=== PATIENT | female | born 1970 | race Caucasian/White ===

== ENCOUNTER → 2019-11-30 15:10 | Outpatient (BNVA) | payer SELFPAY | PROVIDERS: Visit Provider Specialist | DX: G35 Multiple sclerosis (principal) | CPT/HCPCS: 99213 ==

== ENCOUNTER 2020-05-10 11:48 | Outpatient (CLI) | payer OTHER, SELFPAY ==
--- NOTE | 2020-05-10 11:55 | MM_ITS ---
WS: [id number] SCREENING DIGITAL MAMMOGRAM WITH CAD HISTORY: SCREENING COMPARISON: 03/27/2019 and 03/28/2018 Bilateral CC and MLO views submitted. Computer aided detection analyzed. Breast composition: There are scattered areas of fibroglandular density. No suspicious masses, microc alcifications or architectural distortion. MM/[place] [id number] IMPRESSION: BI-RADS: 1-Negative FOLLOW UP: 1 Year Follow-up
== END 2020-05-10 11:49 | disposition home or self-care (01) ==
LOC: RADSHAW 11:51
PROVIDERS: Visit Provider Nurse Practitioner Family
DX: Z12.31 Encounter for screening mammogram for malignant neoplasm of breast (principal)
CPT/HCPCS: 77067

== ENCOUNTER → 2020-11-28 15:25 | Outpatient (BNVA) | payer SELFPAY | PROVIDERS: Visit Provider Specialist | DX: G35 Multiple sclerosis (principal); Z71.89 Other specified counseling | CPT/HCPCS: 99213 ==

== ENCOUNTER 2021-07-07 10:00 | Outpatient (CLI) | payer OTHER, SELFPAY ==
--- NOTE | 2021-07-07 10:20 | MM_ITS ---
WS: [id number] BILATERAL DIGITAL SCREENING MAMMOGRAPHY WITH CAD CLINICAL INFORMATION: SCREENING HISTORY: Screening mammogram. No current complaints. COMPARISON: May 10, 2020 TECHNIQUE: Bilateral CC and MLO views. FINDINGS: Scattered fibroglandular densities bilaterally. No suspicious focal mass, asymmetry, calcifications, or architectural distortion. No evidence of malignancy. MM/[place] [id number] IMPRESSION: BI-RADS: 1-Negative FOLLOW UP: 1 Year Follow-up Recommend return to annual screening mammography.
== END 2021-07-07 10:01 | disposition home or self-care (01) ==
PROVIDERS: Visit Provider Nurse Practitioner Family
DX: Z12.31 Encounter for screening mammogram for malignant neoplasm of breast (principal)
CPT/HCPCS: 77067

== ENCOUNTER 2021-12-29 07:16 | Outpatient (CLI) | payer SELFPAY ==
[2022-01-11 21:43] LABS: Acetylcholine Recept Modulatin 83
[2022-01-12 23:27] LABS: Acetylcholine Receptor Block 29 (<15)
== END 2021-12-29 07:17 | disposition home or self-care (01) ==
PROVIDERS: Visit Provider Specialist
DX: G35 Multiple sclerosis (principal)
CPT/HCPCS: 36415; 83516; 83519

== ENCOUNTER 2022-07-11 11:39 | Outpatient (CLI) | payer SELFPAY ==
--- NOTE | 2022-07-11 12:13 | MM_ITS ---
WS: [id number] BILATERAL 3D TOMOSYNTHESIS DIGITAL SCREENING MAMMOGRAPHY WITH CAD CLINICAL INFORMATION: SCREENING HISTORY: Screening mammogram. No current complaints. COMPARISON: 2021 TECHNIQUE: Bilateral CC and MLO views. FINDINGS: Scattered fibroglandular densities bilaterally. No suspicious focal mass, asymmetry, calcifications, or architectural distortion. No evidence of malignancy. A few incidental punctate calcifications. MM/[place] [id number] IMPRESSION: BI-RADS: 2-Benign FOLLOW UP: 1 Year Follow-up Recommend return to annual screening mammography.
== END 2022-07-11 11:40 | disposition home or self-care (01) ==
LOC: RAD 11:41
PROVIDERS: Visit Provider Advanced Practice Midwife
DX: Z12.31 Encounter for screening mammogram for malignant neoplasm of breast (principal)
CPT/HCPCS: 77063; 77067

== ENCOUNTER 2022-08-24 08:30 | Oncology outpatient (recurring) (ONCR) | payer SELFPAY ==
[2022-08-03 08:35] VITALS: BP 125/75; PULSE 70; RESP 16; TEMP 36.2; O2SAT 98
[2022-08-03] MEDS: sodium chloride 0.9% 250 ML 75 ML IV (08:45)
[2022-08-03 11:25] VITALS: BP 112/77; PULSE 66; RESP 16; TEMP 36.2; O2SAT 98
[2022-08-10 08:26] VITALS: BMI 25.5
[2022-08-10 08:34] VITALS: BP 115/76; PULSE 72; RESP 16; TEMP 36.3; O2SAT 99
[2022-08-10] MEDS: sodium chloride 0.9% 250 ML 75 ML IV (08:39)
[2022-08-10 09:46] VITALS: BP 128/78; PULSE 65; RESP 16; TEMP 36.3; O2SAT 99
[2022-08-10 10:37] VITALS: BP 110/71; PULSE 64; RESP 16; TEMP 36.3; O2SAT 98
[2022-08-17] MEDS: sodium chloride 0.9% 250 ML IV (08:37)
[2022-08-17 10:04] VITALS: BP 111/67; PULSE 65; RESP 16; TEMP 36.4; O2SAT 99
[2022-08-24] MEDS: sodium chloride 0.9% 250 ML IV (08:46)
[2022-08-24 08:49] VITALS: BP 124/80; PULSE 71; RESP 18; TEMP 36.7; O2SAT 98
[2022-08-24 11:01] VITALS: BP 118/80; PULSE 74; RESP 18; TEMP 36.1; O2SAT 98
== END 2022-08-31 23:59 | disposition home or self-care (01) ==
PROVIDERS: Visit Provider Specialist
DX: G35 Multiple sclerosis (principal); G70.00 Myasthenia gravis without (acute) exacerbation; Z79.899 Other long term (current) drug therapy
CPT/HCPCS: 96365; 96366; A4222; J7050

== ENCOUNTER 2022-12-06 10:10 | Outpatient (CLI) | payer SELFPAY ==
[2022-12-06 10:51] LABS: Basophils % 0.4 %; Eosinophils % 0.1 %; Hematocrit 42.5 % (37.0-47.0); Hemoglobin 13.8 g/dL (11.5-15.3); Lymphocytes # 1.2 10^3/uL (0.8-4.8); Lymphocytes % 14.8 %; Mean Corpuscular HGB Conc 32.5 g/dL (30.0-36.0); Mean Corpuscular Hemoglobin 32.7 pg (28.0-34.0); Mean Corpuscular Volume 100.7 fl (81-99); Mean Platelet Volume 9.1 fL (7.4-10.4); Monocytes # 0.3 10^3/uL (0.2-0.9); Monocytes % 3.7 %; Neutrophils # 6.23 10^3/uL (1.8-7.7); Neutrophils % 80.5 %; Nucleated Red Blood Cells % 0 %; Platelet Count 276 10^3/cmm (130-400); Red Blood Count 4.22 10^6/uL (4.1-5.3); White Blood Count 7.8 10^3/uL (4.0-10.0)
[2022-12-06 11:23] LABS: Alanine Aminotransferase 14 U/L (0-33); Albumin Level 3.9 g/dL (3.5-5.2); Alkaline Phosphatase 40 U/L (35-105); Aspartate Amino Transferase 22 U/L (0-32); Blood Urea Nitrogen 9 mg/dL (6-20); Calcium 8.9 mg/dL (8.5-10.5); Carbon Dioxide 22 mmol/L (22-29); Chloride 109 mmol/L (98-107); Globulin 2.3 g/dL (1.3-4.6); Glomerular Filtration Rate 75.3 mL/min (90-130); Glucose 100 mg/dL (65-115); Osmolality Calculated 295 mOsm/kg (285-295); Sodium 143 mmol/L (136-145); Thyroid Stimulating Hormone 1.68 uIU/mL (0.27-4.20); Total Bilirubin 0.4 mg/dL (0.15-1.2); Total Protein 6.2 g/dL (6.6-8.7)
== END 2022-12-06 10:11 | disposition home or self-care (01) ==
LOC: LAB 10:12
PROVIDERS: Visit Provider Specialist
DX: G70.00 Myasthenia gravis without (acute) exacerbation (principal)
CPT/HCPCS: 36415; 80053; 84443; 85025

== ENCOUNTER 2023-01-25 09:00 | Oncology outpatient (recurring) (ONCR) | payer SELFPAY ==
[2023-01-11] MEDS: sodium chloride 0.9% 250 ML 75 ML IV (09:19)
[2023-01-11] MEDS: diphenhydrAMINE 25 mg Capsule PO (09:20)
[2023-01-11 09:39] VITALS: BP 126/69; PULSE 67; RESP 17; TEMP 36.8; O2SAT 98
[2023-01-11 10:30] VITALS: BP 126/71; PULSE 59; RESP 16; TEMP 36.6; O2SAT 99
[2023-01-18 08:47] VITALS: BP 142/74; PULSE 72; RESP 18; TEMP 36.2; O2SAT 96
[2023-01-18] MEDS: sodium chloride 0.9% 250 ML 75 ML IV (09:00)
[2023-01-18] MEDS: diphenhydrAMINE 25 mg Capsule PO (09:00)
[2023-01-18 10:40] VITALS: BP 130/71; PULSE 75; RESP 17; TEMP 36.4; O2SAT 95
[2023-01-25 09:23] VITALS: BMI 25.5
[2023-01-25] MEDS: diphenhydrAMINE 25 mg Capsule PO (09:41)
[2023-01-25] MEDS: sodium chloride 0.9% 250 ML 75 ML IV (09:44)
[2023-01-25 09:45] VITALS: BP 131/67; PULSE 79; RESP 17; TEMP 36; O2SAT 97; BMI 25.5
[2023-01-25 11:35] VITALS: BP 118/74; PULSE 65; O2SAT 98
== END 2023-01-31 23:59 | disposition home or self-care (01) ==
PROVIDERS: Visit Provider Specialist
DX: Z51.12 Encounter for antineoplastic immunotherapy (principal); G35 Multiple sclerosis
CPT/HCPCS: 96365; 96413; J7050; Q5121

== ENCOUNTER 2023-02-01 08:38 | Oncology outpatient (recurring) (ONCR) | payer SELFPAY ==
[2023-02-01 08:40] VITALS: BP 124/59; PULSE 103; RESP 18; TEMP 36.6; O2SAT 97
[2023-02-01 08:49] VITALS: BMI 25.2
[2023-02-01] MEDS: sodium chloride 0.9% 250 ML 75 ML IV (09:13)
[2023-02-01] MEDS: diphenhydrAMINE 25 mg Capsule PO (09:13)
[2023-02-01 11:00] VITALS: BP 120/65; PULSE 74; RESP 16; TEMP 36.5; O2SAT 96
== END 2023-03-02 23:59 | disposition home or self-care (01) ==
PROVIDERS: Visit Provider Specialist
DX: G35 Multiple sclerosis (principal)
CPT/HCPCS: 96413; J7050; Q5121

== ENCOUNTER 2023-04-24 08:00 | Oncology outpatient (recurring) (ONCR) | payer SELFPAY ==
[2023-04-05 07:58] VITALS: BP 126/78; PULSE 69; O2SAT 99
[2023-04-05] MEDS: sodium chloride 0.9% 250 ML 75 ML IV (08:23)
[2023-04-05] MEDS: diphenhydrAMINE 25 mg Capsule PO (08:23)
[2023-04-05 09:50] VITALS: BP 143/70; PULSE 64; RESP 16; O2SAT 99
[2023-04-12 07:58] VITALS: BP 122/80; PULSE 76; TEMP 36.3; O2SAT 98
[2023-04-12] MEDS: diphenhydrAMINE 25 mg Capsule PO (08:25)
[2023-04-12] MEDS: sodium chloride 0.9% 250 ML 75 ML IV (08:25)
[2023-04-12 10:09] VITALS: BP 134/75; PULSE 60; TEMP 36.8; O2SAT 97
[2023-04-19 07:58] VITALS: BP 122/71; PULSE 78; TEMP 36.3; O2SAT 98
[2023-04-19] MEDS: sodium chloride 0.9% (100 ml) 100 ML 25 ML (08:18)
[2023-04-19] MEDS: diphenhydrAMINE 25 mg Capsule PO (08:18)
[2023-04-19 10:00] VITALS: BP 121/69; PULSE 64; O2SAT 98
[2023-04-24] MEDS: sodium chloride 0.9% 250 ML 75 ML IV (08:42)
[2023-04-24] MEDS: diphenhydrAMINE 25 mg Capsule PO (08:42)
[2023-04-24 09:00] VITALS: BP 121/63; PULSE 63; RESP 16; O2SAT 99
[2023-04-24 10:33] VITALS: BP 119/66; PULSE 65; RESP 17; O2SAT 99
== END 2023-05-02 23:59 | disposition home or self-care (01) ==
PROVIDERS: Visit Provider Specialist
DX: G35 Multiple sclerosis (principal)
CPT/HCPCS: 96365; 96413; J7050; Q5121

== ENCOUNTER 2023-08-30 09:00 | Oncology outpatient (recurring) (ONCR) | payer SELFPAY ==
[2023-08-16] MEDS: diphenhydrAMINE 25 mg Capsule PO (09:23)
[2023-08-16] MEDS: sodium chloride 0.9% 250 ML 75 ML IV (09:24)
[2023-08-16 09:25] VITALS: BP 120/74; PULSE 69; RESP 16; TEMP 36.6; O2SAT 97
[2023-08-16] MEDS: SODIUM CHLORIDE 0.9% IV (09:37)
[2023-08-16] MEDS: EFGARTIGIMOD ALFA FCAB IV (09:37)
[2023-08-16 10:37] VITALS: BP 116/71; PULSE 72; RESP 16; TEMP 36.4; O2SAT 97
[2023-08-23] MEDS: diphenhydrAMINE 25 mg Capsule PO (09:20)
[2023-08-23] MEDS: sodium chloride 0.9% 250 ML 75 ML IV (09:20)
[2023-08-23] MEDS: EFGARTIGIMOD ALFA FCAB IV (09:37)
[2023-08-23] MEDS: SODIUM CHLORIDE 0.9% IV (09:37)
[2023-08-30 09:09] VITALS: BP 131/77; PULSE 82; RESP 17; TEMP 36.7; O2SAT 97
[2023-08-30] MEDS: diphenhydrAMINE 25 mg Capsule PO (09:09)
[2023-08-30] MEDS: sodium chloride 0.9% 250 ML 75 ML IV (09:12)
[2023-08-30] MEDS: SODIUM CHLORIDE 0.9% IV (09:26)
[2023-08-30] MEDS: EFGARTIGIMOD ALFA FCAB IV (09:26)
[2023-08-30 10:26] VITALS: BP 120/77; PULSE 85; O2SAT 97
== END 2023-09-01 23:59 | disposition home or self-care (01) ==
PROVIDERS: Visit Provider Specialist
DX: Z53.9 Procedure and treatment not carried out, unspecified reason (principal); G35 Multiple sclerosis
CPT/HCPCS: 96365; 96413; A4222; J7050; Q5121

== ENCOUNTER 2023-09-06 08:29 | Oncology outpatient (recurring) (ONCR) | payer SELFPAY ==
[2023-09-06 08:52] VITALS: BP 129/78; PULSE 64; RESP 18; TEMP 36.7; O2SAT 99
[2023-09-06] MEDS: diphenhydrAMINE 25 mg Capsule PO (08:55)
[2023-09-06] MEDS: SODIUM CHLORIDE 0.9% IV (09:24)
[2023-09-06] MEDS: EFGARTIGIMOD ALFA FCAB IV (09:24)
[2023-09-06 10:18] VITALS: BP 142/85; PULSE 66; RESP 17; TEMP 36.8; O2SAT 99
== END 2023-10-01 23:59 | disposition home or self-care (01) ==
PROVIDERS: Visit Provider Specialist
DX: G35 Multiple sclerosis; Z53.9 Procedure and treatment not carried out, unspecified reason
CPT/HCPCS: 96365; Q5121

== ENCOUNTER 2023-09-24 08:39 | Outpatient (CLI) | payer OTHER, SELFPAY ==
--- NOTE | 2023-09-24 08:45 | MM_ITS ---
WS: [id number] BILATERAL 3D TOMOSYNTHESIS DIGITAL SCREENING MAMMOGRAPHY WITH CAD CLINICAL INFORMATION: SCREENING HISTORY: Screening mammogram. No current complaints. COMPARISON: 2022 TECHNIQUE: Bilateral CC and MLO views. FINDINGS: Scattered fibroglandular densities bilaterally. No suspicious focal mass, asymmetry, calcifications, or architectural distortion. No evidence of malignancy. IMPRESSION: MM/[place] [id number] BI-RADS: 1-Negative FOLLOW UP: 1 Year Follow-up Recommend return to annual screening mammography.
== END 2023-09-24 08:40 | disposition home or self-care (01) ==
LOC: RAD 08:40
PROVIDERS: Visit Provider Advanced Practice Midwife
DX: Z12.31 Encounter for screening mammogram for malignant neoplasm of breast (principal)
CPT/HCPCS: 77063; 77067

== ENCOUNTER 2023-11-01 08:22 | Oncology outpatient (recurring) (ONCR) | payer SELFPAY ==
[2023-11-01 08:54] VITALS: BP 135/80; PULSE 75; RESP 16; TEMP 36.4; O2SAT 95
[2023-11-01] MEDS: EFGARTIGIMOD ALFA FCAB IV (09:39)
[2023-11-01] MEDS: SODIUM CHLORIDE 0.9% IV (09:39)
[2023-11-01 11:05] VITALS: BP 125/81; PULSE 66; RESP 16; TEMP 36.6; O2SAT 98
== END 2023-11-01 23:59 | disposition home or self-care (01) ==
PROVIDERS: Visit Provider Internal Medicine Medical Oncology
DX: G35 Multiple sclerosis (principal)
CPT/HCPCS: 96365; Q5121

== ENCOUNTER 2023-11-22 08:30 | Oncology outpatient (recurring) (ONCR) | payer SELFPAY ==
[2023-11-08 09:06] VITALS: BP 133/81; PULSE 76; RESP 16; TEMP 36.5; O2SAT 97
[2023-11-08] MEDS: SODIUM CHLORIDE 0.9% IV (09:56)
[2023-11-08] MEDS: EFGARTIGIMOD ALFA FCAB IV (09:56)
[2023-11-08 11:05] VITALS: BP 116/78; PULSE 74; RESP 17; TEMP 35.9; O2SAT 97
[2023-11-15 08:25] VITALS: BP 144/83; PULSE 73; RESP 18; TEMP 36.4; O2SAT 97
[2023-11-15] MEDS: SODIUM CHLORIDE 0.9% IV (08:47)
[2023-11-15] MEDS: EFGARTIGIMOD ALFA FCAB IV (08:47)
[2023-11-15 09:42] VITALS: BP 146/85; PULSE 65; TEMP 36.6; O2SAT 99
[2023-11-22 08:10] VITALS: BP 151/93; PULSE 83; RESP 16; O2SAT 97
[2023-11-22] MEDS: SODIUM CHLORIDE 0.9% IV (08:25)
[2023-11-22] MEDS: EFGARTIGIMOD ALFA FCAB IV (08:25)
[2023-11-22 09:25] VITALS: BP 128/80; PULSE 70; RESP 16; O2SAT 97
== END 2023-12-01 23:59 | disposition home or self-care (01) ==
PROVIDERS: Visit Provider Internal Medicine Medical Oncology
DX: G35 Multiple sclerosis (principal); Z53.9 Procedure and treatment not carried out, unspecified reason
CPT/HCPCS: 96365; A4222; Q5121

== ENCOUNTER 2024-01-17 07:30 | Oncology outpatient (recurring) (ONCR) | payer SELFPAY ==
[2024-01-10 09:30] VITALS: BP 113/77; PULSE 64; RESP 16; TEMP 36.9; O2SAT 99
[2024-01-10] MEDS: SODIUM CHLORIDE 0.9% IV (09:59)
[2024-01-10] MEDS: EFGARTIGIMOD ALFA FCAB IV (09:59)
[2024-01-10 11:00] VITALS: BP 127/79; PULSE 67; RESP 17; TEMP 36.6; O2SAT 98
[2024-01-17 07:51] VITALS: BP 111/74; PULSE 89; TEMP 37; O2SAT 98
[2024-01-17] MEDS: EFGARTIGIMOD ALFA FCAB IV (08:16)
[2024-01-17] MEDS: SODIUM CHLORIDE 0.9% IV (08:16)
[2024-01-17 09:13] VITALS: BP 116/78; PULSE 74; RESP 16; TEMP 36.6; O2SAT 96
== END 2024-01-17 23:59 | disposition home or self-care (01) ==
PROVIDERS: Visit Provider Internal Medicine Medical Oncology
DX: Z53.9 Procedure and treatment not carried out, unspecified reason; Z79.899 Other long term (current) drug therapy; G35 Multiple sclerosis
CPT/HCPCS: 96365; A4222; Q5121

== ENCOUNTER 2024-01-31 07:49 | Oncology outpatient (recurring) (ONCR) | payer SELFPAY ==
[2024-01-24 08:18] VITALS: BP 145/89; PULSE 79; RESP 16; TEMP 36.9; O2SAT 98
[2024-01-24] MEDS: EFGARTIGIMOD ALFA FCAB IV (08:43)
[2024-01-24] MEDS: SODIUM CHLORIDE 0.9% IV (08:43)
[2024-01-24 09:47] VITALS: BP 122/81; PULSE 61; RESP 16; TEMP 36.5; O2SAT 98
[2024-01-31 07:55] VITALS: BP 118/72; PULSE 77; RESP 16; TEMP 36.3; O2SAT 99
[2024-01-31] MEDS: SODIUM CHLORIDE 0.9% IV (08:24)
[2024-01-31] MEDS: EFGARTIGIMOD ALFA FCAB IV (08:24)
[2024-01-31 09:28] VITALS: BP 117/73; PULSE 73; RESP 16; TEMP 36.2; O2SAT 99
== END 2024-02-01 23:59 | disposition home or self-care (01) ==
PROVIDERS: Visit Provider Internal Medicine Medical Oncology
DX: Z53.9 Procedure and treatment not carried out, unspecified reason (principal); G70.00 Myasthenia gravis without (acute) exacerbation
CPT/HCPCS: 96365; 96413; A4222; Q5121

== ENCOUNTER 2024-04-24 08:00 | Oncology outpatient (recurring) (ONCR) | payer SELFPAY ==
[2024-04-10] MEDS: EFGARTIGIMOD ALFA FCAB IV (08:34)
[2024-04-10] MEDS: SODIUM CHLORIDE 0.9% IV (08:34)
[2024-04-10 08:46] VITALS: BP 130/79; PULSE 78; RESP 16; TEMP 36.8; O2SAT 96
[2024-04-10 09:39] VITALS: BP 125/85; PULSE 70; TEMP 36.6; O2SAT 98
--- NOTE | 2024-04-13 14:57 | PC.NURSE ---
Called Dr. Dooley's office, spoke with nurse Griffin. Clarified vyvgart order. Pt is to receive vyvgart 735mg for 4 weeks in a row, Q50 days.
[2024-04-17 08:20] VITALS: BP 141/82; PULSE 74; RESP 17; TEMP 36.2; O2SAT 97
[2024-04-17] MEDS: EFGARTIGIMOD ALFA FCAB IV (08:40)
[2024-04-17] MEDS: SODIUM CHLORIDE 0.9% IV (08:40)
[2024-04-17 09:33] VITALS: BP 117/83; PULSE 58; TEMP 36.7; O2SAT 98
[2024-04-24 08:32] VITALS: BP 116/76; PULSE 71; RESP 16; TEMP 36.6; O2SAT 98
[2024-04-24] MEDS: EFGARTIGIMOD ALFA FCAB IV (08:48)
[2024-04-24] MEDS: SODIUM CHLORIDE 0.9% IV (08:48)
[2024-04-24 09:48] VITALS: BP 138/66; PULSE 69; RESP 16; TEMP 37; O2SAT 99
== END 2024-05-02 23:59 | disposition home or self-care (01) ==
PROVIDERS: Visit Provider Internal Medicine Medical Oncology
DX: G35 Multiple sclerosis (principal); Z79.899 Other long term (current) drug therapy; Z53.9 Procedure and treatment not carried out, unspecified reason
CPT/HCPCS: 96365; A4222; Q5121

== ENCOUNTER 2024-05-28 08:07 | Oncology outpatient (recurring) (ONCR) | payer SELFPAY ==
[2024-05-04 08:09] VITALS: BP 124/75; PULSE 94; TEMP 36.7; O2SAT 97
[2024-05-04] MEDS: EFGARTIGIMOD ALFA FCAB IV (08:47)
[2024-05-04] MEDS: SODIUM CHLORIDE 0.9% IV (08:47)
[2024-05-04 09:44] VITALS: BP 108/72; TEMP 36.4
[2024-05-28] VITALS (8 sets, daily range): BP systolic 113–128; BP diastolic 67–85; PULSE 63–90; RESP 15–16; TEMP 35.6–37; O2SAT 96–98
[2024-05-28] MEDS: sodium chloride 0.9% 250 ML 75 ML IV (08:52)
[2024-05-28] MEDS: diphenhydrAMINE 50 mg/mL SDV 1mL 25 MG IVP (08:56)
[2024-05-28] MEDS: methylPREDNISolone sod succ 125 mg/2 mL INJ IVP (09:01)
[2024-05-28] MEDS: ocrelizumab 300 MG in sodium chloride 0.9% 250 ML 30 MG IV (09:50)
== END 2024-06-02 23:59 | disposition home or self-care (01) ==
PROVIDERS: Visit Provider Internal Medicine
DX: G35 Multiple sclerosis; Z79.899 Other long term (current) drug therapy; Z53.9 Procedure and treatment not carried out, unspecified reason
CPT/HCPCS: 96365; 96375; 96413; 96415; A4222; J1200; J2350; J2919; J7050; Q5121

== ENCOUNTER 2024-06-11 07:56 | Oncology outpatient (recurring) (ONCR) | payer SELFPAY ==
[2024-06-11] MEDS: acetaminophen 500 mg Tablet 1000 MG PO (09:34)
[2024-06-11] MEDS: sodium chloride 0.9% 250 ML 75 ML IV (09:34)
[2024-06-11] MEDS: methylPREDNISolone sod succ 125 mg/2 mL INJ IVP (09:35)
[2024-06-11] MEDS: diphenhydrAMINE 50 mg/mL SDV 1mL 25 MG IVP (09:41)
[2024-06-11 10:26] VITALS: BP 126/82; PULSE 68; RESP 16; TEMP 35.9; O2SAT 98
[2024-06-11] MEDS: ocrelizumab 300 MG in sodium chloride 0.9% 250 ML 30 MG IV (10:26)
[2024-06-11 10:56] VITALS: BP 115/75; PULSE 69; RESP 16; TEMP 36.4; O2SAT 97
[2024-06-11 11:26] VITALS: BP 108/66; PULSE 69; RESP 16; TEMP 36.6; O2SAT 97
[2024-06-11 14:20] VITALS: BP 127/78; PULSE 74; RESP 18; TEMP 36.5; O2SAT 98
== END 2024-07-03 23:59 | disposition home or self-care (01) ==
PROVIDERS: Visit Provider Internal Medicine
DX: G35 Multiple sclerosis (principal); Z79.899 Other long term (current) drug therapy
CPT/HCPCS: 96375; 96413; 96415; A4222; J1200; J2350; J2919; J7040; J7050

== ENCOUNTER 2024-07-31 07:59 | Oncology outpatient (recurring) (ONCR) | payer SELFPAY ==
[2024-07-10 08:06] VITALS: BP 140/72; PULSE 78; RESP 17; TEMP 36.3; O2SAT 97
[2024-07-10] MEDS: SODIUM CHLORIDE 0.9% IV (08:56)
[2024-07-10] MEDS: EFGARTIGIMOD ALFA FCAB IV (08:56)
[2024-07-10 10:00] VITALS: BP 125/80; PULSE 66; RESP 16; TEMP 36.8; O2SAT 98
[2024-07-17 08:44] VITALS: BP 125/83; PULSE 78; RESP 16; TEMP 36.6; O2SAT 99
[2024-07-17] MEDS: EFGARTIGIMOD ALFA FCAB IV (09:08)
[2024-07-17] MEDS: SODIUM CHLORIDE 0.9% IV (09:08)
[2024-07-17 10:10] VITALS: BP 126/83; PULSE 67; RESP 16; TEMP 36.8; O2SAT 99
[2024-07-24 08:39] VITALS: BP 127/78; PULSE 73; RESP 17; TEMP 36.4; O2SAT 98
[2024-07-24] MEDS: SODIUM CHLORIDE 0.9% IV (08:51)
[2024-07-24] MEDS: EFGARTIGIMOD ALFA FCAB IV (08:51)
[2024-07-24 10:10] VITALS: BP 127/84; PULSE 82; RESP 17; TEMP 36.1; O2SAT 98
[2024-07-31 08:26] VITALS: BP 137/84; PULSE 70; RESP 14; TEMP 36.8; O2SAT 97
[2024-07-31] MEDS: SODIUM CHLORIDE 0.9% IV (08:35)
[2024-07-31] MEDS: EFGARTIGIMOD ALFA FCAB IV (08:35)
[2024-07-31 09:36] VITALS: BP 125/76; PULSE 69; RESP 18; TEMP 36.9; O2SAT 98
== END 2024-07-31 23:59 | disposition home or self-care (01) ==
PROVIDERS: Visit Provider Internal Medicine
DX: G35 Multiple sclerosis (principal); Z79.899 Other long term (current) drug therapy
CPT/HCPCS: 96365; A4222; Q5121

== ENCOUNTER 2024-09-24 10:46 | Outpatient (CLI) | payer OTHER, SELFPAY ==
--- NOTE | 2024-09-24 | MM_ITS ---
WS: [id number] BILATERAL SCREENING DIGITAL TOMOSYNTHESIS MAMMOGRAM WITH CAD HISTORY: ANNUAL SCREENING COMPARISON: 09/24/2023, 07/11/2022 Bilateral CC and MLO views with tomosynthesis and synthetic mammography submitted. Computer aided detection analyzed. Breast composition: The breasts are almost entirely fatty. No suspicious masses, microcalcifications or architectural distortion. MM/MM scr [place] tomosynthesis [id number] IMPRESSION: BI-RADS: 1 - Negative. FOLLOW UP: 1 Year Follow-up
== END 2024-09-24 10:47 | disposition home or self-care (01) ==
PROVIDERS: Visit Provider Advanced Practice Midwife
DX: Z12.31 Encounter for screening mammogram for malignant neoplasm of breast (principal); R92.313 Mammographic fatty tissue density, bilateral breasts
CPT/HCPCS: 77063; 77067

== ENCOUNTER 2024-09-25 08:00 | Oncology outpatient (recurring) (ONCR) | payer SELFPAY ==
[2024-09-11] MEDS: EFGARTIGIMOD ALFA FCAB IV (08:46)
[2024-09-11] MEDS: SODIUM CHLORIDE 0.9% IV (08:46)
[2024-09-11 09:57] VITALS: BP 148/84; PULSE 67; RESP 17; TEMP 36.9; O2SAT 97
[2024-09-18 08:09] VITALS: BP 128/82; PULSE 92; RESP 16; TEMP 36.6; O2SAT 97
[2024-09-18] MEDS: EFGARTIGIMOD ALFA FCAB IV (08:35)
[2024-09-18] MEDS: SODIUM CHLORIDE 0.9% IV (08:35)
[2024-09-18 09:31] VITALS: BP 122/80; PULSE 92; RESP 16; TEMP 36.8; O2SAT 99
[2024-09-25 08:23] LABS: Basophils # 0.1 10^3/uL (0.0-0.1); Basophils % 0.6 %; Eosinophils # 0.1 10^3/uL (0.0-0.8); Eosinophils % 1.3 %; Hematocrit 44.9 % (36-47); Lymphocytes # 1.8 10^3/uL (0.8-4.8); Lymphocytes % 21.4 %; Mean Corpuscular HGB Conc 32.7 g/dL (30-55); Mean Corpuscular Hemoglobin 31.8 pg (27-33); Mean Corpuscular Volume 97.2 fl (85-98); Mean Platelet Volume 9.3 fL (7.4-10.4); Monocytes # 0.8 10^3/uL (0.2-0.9); Monocytes % 9.4 %; Neutrophils # 5.65 10^3/uL (1.8-7.7); Neutrophils % 66.9 %; Nucleated Red Blood Cells % 0 %; Platelet Count 337 10^3/cmm (157-399); Red Blood Count 4.62 10^6/uL (3.85-5.65); Red Cell Distribution Width 12.7 % (12.1-15.1); White Blood Count 8.43 10^3/uL (3.29-11.43)
[2024-09-25 08:28] VITALS: BP 134/82; PULSE 91; RESP 17; TEMP 36.3; O2SAT 96
[2024-09-25] MEDS: EFGARTIGIMOD ALFA FCAB IV (08:40)
[2024-09-25] MEDS: SODIUM CHLORIDE 0.9% IV (08:40)
[2024-09-25 08:55] LABS: Alanine Aminotransferase 14 U/L (0-33); Albumin Level 4.4 g/dL (3.5-5.2); Alkaline Phosphatase 92 U/L (35-105); Anion Gap 18.8 (5-19); Aspartate Amino Transferase 24 U/L (0-32); Blood Urea Nitrogen 13 mg/dL (6-20); Calcium 9.3 mg/dL (8.5-10.5); Carbon Dioxide 21 mmol/L (22-29); Chloride 105 mmol/L (98-107); Creatinine Clr Calc Pharmacy 106.9405; Free T4 Free Thyroxine 1.03 ng/dL (0.82-1.77); Globulin 2.2 g/dL (1.3-4.6); Glomerular Filtration Rate 87.5 mL/min (90-130); Glucose 134 mg/dL (65-115); Osmolality Calculated 294 mOsm/kg (285-295); Potassium 3.8 mmol/L (3.5-5.1); Sodium 141 mmol/L (136-145); Thyroid Stimulating Hormone 4.21 uIU/mL (0.27-4.20); Total Bilirubin 0.8 mg/dL (0.15-1.2); Total Protein 6.6 g/dL (6.6-8.7)
== END 2024-09-30 23:59 | disposition home or self-care (01) ==
PROVIDERS: Specialist; Visit Provider Internal Medicine
DX: Z53.9 Procedure and treatment not carried out, unspecified reason; G35 Multiple sclerosis; Z79.899 Other long term (current) drug therapy
CPT/HCPCS: 80053; 84439; 84443; 85025; 96365; A4222; Q5121

== ENCOUNTER 2024-10-02 08:00 | Oncology outpatient (recurring) (ONCR) | payer SELFPAY ==
[2024-10-02] MEDS: EFGARTIGIMOD ALFA FCAB IV (08:38)
[2024-10-02] MEDS: SODIUM CHLORIDE 0.9% IV (08:38)
[2024-10-02 09:40] VITALS: BP 124/79; PULSE 68; RESP 17; TEMP 37.2; O2SAT 99
== END 2024-10-31 23:59 | disposition home or self-care (01) ==
LOC: ONCMED 08:01
PROVIDERS: Visit Provider Internal Medicine
DX: G35 Multiple sclerosis (principal); Z79.899 Other long term (current) drug therapy; Z53.9 Procedure and treatment not carried out, unspecified reason
CPT/HCPCS: 96365; A4222; Q5121

== ENCOUNTER 2024-12-25 08:03 | Oncology outpatient (recurring) (ONCR) | payer SELFPAY ==
[2024-12-03] VITALS (7 sets, daily range): BP systolic 124–150; BP diastolic 70–86; PULSE 62–68; RESP 16–17; TEMP 35.8–36.8; O2SAT 95–99
[2024-12-03] MEDS: methylPREDNISolone sod succ 125 mg/2 mL INJ IVP (08:31)
[2024-12-03] MEDS: diphenhydrAMINE 50 mg/mL SDV 1mL 25 MG IVP (08:31)
[2024-12-11] MEDS: EFGARTIGIMOD ALFA FCAB IV (08:34)
[2024-12-11] MEDS: SODIUM CHLORIDE 0.9% IV (08:34)
[2024-12-11 09:48] VITALS: BP 131/80; PULSE 65; RESP 17; TEMP 36.7; O2SAT 98
[2024-12-18] MEDS: SODIUM CHLORIDE 0.9% IV (08:44)
[2024-12-18] MEDS: EFGARTIGIMOD ALFA FCAB IV (08:44)
[2024-12-18 09:51] VITALS: BP 119/81; PULSE 70; RESP 17; TEMP 36.4; O2SAT 99
[2024-12-25 08:09] VITALS: BP 133/86; PULSE 80; TEMP 36.8; O2SAT 97
[2024-12-25] MEDS: SODIUM CHLORIDE 0.9% IV (08:52)
[2024-12-25] MEDS: EFGARTIGIMOD ALFA FCAB IV (08:52)
[2024-12-25 09:52] VITALS: BP 117/79; PULSE 66; TEMP 36.6; O2SAT 98
== END 2024-12-31 23:59 | disposition home or self-care (01) ==
PROVIDERS: Visit Provider Internal Medicine
DX: Z53.9 Procedure and treatment not carried out, unspecified reason; G35 Multiple sclerosis; Z79.899 Other long term (current) drug therapy
CPT/HCPCS: 96365; 96375; 96413; 96415; A4222; J1200; J2350; J2919; J7040; J7050; J9999; Q5121

== ENCOUNTER 2025-01-01 08:12 | Oncology outpatient (recurring) (ONCR) | payer SELFPAY ==
[2025-01-01] MEDS: EFGARTIGIMOD ALFA FCAB IV (08:41)
[2025-01-01] MEDS: SODIUM CHLORIDE 0.9% IV (08:41)
[2025-01-01 09:46] VITALS: BP 113/78; PULSE 70; TEMP 36.6; O2SAT 97
== END 2025-01-31 23:59 | disposition home or self-care (01) ==
PROVIDERS: Visit Provider Internal Medicine
DX: G35 Multiple sclerosis (principal); Z79.899 Other long term (current) drug therapy
CPT/HCPCS: 96365; Q5121

== ENCOUNTER 2025-03-25 08:29 | Oncology outpatient (recurring) (ONCR) | payer SELFPAY ==
[2025-03-04] MEDS: EFGARTIGIMOD ALFA FCAB IV (13:58)
[2025-03-04] MEDS: SODIUM CHLORIDE 0.9% IV (13:58)
[2025-03-04 14:53] VITALS: BP 116/84; PULSE 67; RESP 18; TEMP 36.9; O2SAT 98
[2025-03-11] MEDS: EFGARTIGIMOD ALFA FCAB IV (13:40)
[2025-03-11] MEDS: SODIUM CHLORIDE 0.9% IV (13:40)
[2025-03-11 14:43] VITALS: BP 108/67; PULSE 77; RESP 17; TEMP 36.8; O2SAT 98
[2025-03-18 13:31] VITALS: BP 138/78; PULSE 82; TEMP 36.3; O2SAT 97
[2025-03-18] MEDS: EFGARTIGIMOD ALFA FCAB IV (14:18)
[2025-03-18] MEDS: SODIUM CHLORIDE 0.9% IV (14:18)
[2025-03-18 15:19] VITALS: BP 122/57; PULSE 72; RESP 16; TEMP 36.6; O2SAT 98
[2025-03-25 09:06] VITALS: BP 108/70; PULSE 103; RESP 17; TEMP 37.1; O2SAT 96
[2025-03-25] MEDS: EFGARTIGIMOD ALFA FCAB IV (09:31)
[2025-03-25] MEDS: SODIUM CHLORIDE 0.9% IV (09:31)
[2025-03-25 10:30] VITALS: BP 121/68; PULSE 103; RESP 17; TEMP 37.1; O2SAT 98
== END 2025-04-02 23:59 | disposition home or self-care (01) ==
PROVIDERS: Visit Provider Specialist
DX: G70.00 Myasthenia gravis without (acute) exacerbation (principal); Z79.899 Other long term (current) drug therapy
CPT/HCPCS: 96365; 96413; A4222; Q5121

== ENCOUNTER 2025-06-02 08:11 | Oncology outpatient (recurring) (ONCR) | payer SELFPAY ==
[2025-05-24] MEDS: EFGARTIGIMOD ALFA FCAB IV (09:14)
[2025-05-24] MEDS: SODIUM CHLORIDE 0.9% IV (09:14)
[2025-05-24 09:19] VITALS: BP 114/72; PULSE 63; RESP 17; TEMP 36.6; O2SAT 97
[2025-05-24 11:23] LABS: Thyroid Stimulating Hormone 2.07 uIU/mL (0.27-4.20)
[2025-06-02 08:32] VITALS: BP 117/81; PULSE 90; TEMP 36.9; O2SAT 97
[2025-06-02] MEDS: SODIUM CHLORIDE 0.9% IV (09:36)
[2025-06-02] MEDS: EFGARTIGIMOD ALFA FCAB IV (09:36)
[2025-06-02 10:47] VITALS: BP 129/72; PULSE 71; RESP 16; TEMP 36.4; O2SAT 96
== END 2025-06-02 23:59 | disposition home or self-care (01) ==
PROVIDERS: Visit Provider Specialist
DX: G70.00 Myasthenia gravis without (acute) exacerbation; Z79.899 Other long term (current) drug therapy; Z53.9 Procedure and treatment not carried out, unspecified reason
CPT/HCPCS: 84443; 96365; A4222; Q5121